=== PATIENT | male | born 1985 | race Caucasian/White ===

== ENCOUNTER 2024-02-10 08:16 | Emergency (ER) | payer SELFPAY ==
[~2024-02-10] VITALS: Ht 177.8 cm; Wt 105.2 kg
[~2024-02-10 08:16] MED LIST: IBUP-974 PO
[2024-02-10 08:37] VITALS: BP 129/87; PULSE 78; RESP 18; TEMP 97.1; O2SAT 98
[2024-02-10] MEDS ORDERED: METR-435 PO (09:15)
[2024-02-10 09:19] VITALS: BP 129/87; PULSE 78; RESP 18; TEMP 97.1; O2SAT 98
[2024-02-10 10:19] LABS: APPEARANCE,URINE CLEAR (CLEAR); BILIRUBIN,URINE 1+ (NEGATIVE); BLOOD, URINE NEGATIVE (NEGATIVE); COLOR,URINE YELLOW (YELLOW); LEUKOCYTE ESTERASE ,URINE NEGATIVE (NEGATIVE); NITRITE, URINE NEGATIVE (NEGATIVE); PROTEIN,URINE NEGATIVE (NEGATIVE); UGLUCOSE NEGATIVE (NEGATIVE)
[2024-02-10 10:28] LABS: ICTOTEST NEGATIVE (NEGATIVE)
== END 2024-02-10 09:20 | disposition home or self-care (01) ==
LOC: MED 08:16
DX: A59.9 Trichomoniasis, unspecified (principal); Z79.899 Other long term (current) drug therapy
CPT/HCPCS: 81003; 87491; 99283